=== PATIENT | female | born 1960 | race Caucasian/White ===

== ENCOUNTER → 2020-09-13 14:00 | Outpatient (CLI) | payer OTHER, SELFPAY ==
--- NOTE | ~2020-09-13 | MM_ITS ---
EXAMINATION: MM screening [facility] BI w ricki HISTORY: Screening mammogram TECHNIQUE: Craniocaudal and mediolateral oblique 3-D tomosynthesis images were obtained and synthetic 2-D images were generated. CAD analysis was submitted and interpreted. COMPARISON: 03/10/2019, 06/23/2017, 04/24/2016, 04/05/2016 BREAST PARENCHYMAL COMPOSITION: The breasts are heterogeneously dense, which may obscure small masses . FINDINGS: There is no evidence of suspicious mass, calcification, or architectural distortion to sugg est malignancy in either breast. There has been no suspicious interval change. IMPRESSION: 1. No mammographic evidence of malignancy. 2. Recommend routine screening mammography in one year. BI-RADS Category 1: Negative Reviewed, dictated and finalized at location A. NIC DISEASE MANAGER
== END ==
PROVIDERS: PCP Registered Nurse; Visit Provider Obstetrics & Gynecology
DX: Z12.31 Encounter for screening mammogram for malignant neoplasm of breast (principal)
CPT/HCPCS: 77063; 77067

== ENCOUNTER → 2021-09-28 16:21 | Outpatient (CLI) | payer OTHER, SELFPAY ==
--- NOTE | ~2021-09-28 | US_ITS ---
EXAMINATION: US thyroid DATE: 09/28/2021 16:36 INDICATION: Nontoxic single thyroid nodule TECHNIQUE: Multiple ultrasound images of the thyroid were obtained. COMPARISON: None. FINDINGS: The right thyroid lobe measures 3.2 x 1.1 x 1.0 cm. The left thyroid lobe measures 4.0 x 1.0 x 0.9 c m. 5 mm round hypoechoic nodule with smooth margins and without echogenic foci at the mid left thyro id (TI-RADS 4, moderately suspicious , FNA if >=1.5 cm, annual followup is >=1 cm). No other nodules identified. There is normal echotexture, echogenicity and vascular flow throughout the thyroid gland. IMPRESSION: 1. 5 mm TI-RADS 4 left thyroid nodule which remains below size criteria for recommendation of either biopsy or follow-up. Recommend clinical follow-up with repeat imaging if there are changes on physica l exam. Reviewed, dictated and finalized at location A. RETE STONE FABRICATING SUPERVISOR IMPRESSION: 1. 5 mm TI-RADS 4 left thyroid nodule which remains below size criteria for rec ommendation of either biopsy or follow-up. Recommend clinical follow-up with re peat imaging if there are changes on physical exam.
== END ==
PROVIDERS: PCP Registered Nurse; Visit Provider Registered Nurse
DX: E04.1 Nontoxic single thyroid nodule (principal)
CPT/HCPCS: 76536

== ENCOUNTER → 2021-10-13 10:02 | Outpatient (CLI) | payer OTHER, SELFPAY ==
--- NOTE | ~2021-10-13 | MM_ITS ---
EXAMINATION: MM screening [facility] BI w ricki HISTORY: Screening TECHNIQUE: Craniocaudal and mediolateral oblique 3-D tomosynthesis images were obtained and synthetic 2-D images were generated. CAD analysis was submitted and interpreted. COMPARISON: Comparison to multiple prior studies sequentially, with oldest reviewed study dated 03/2016. BREAST PARENCHYMAL COMPOSITION: The breasts are heterogenously dense, which may obscure small masses FINDINGS: There is no evidence of suspicious mass, calcification, or architectural distortion to sugg est malignancy in either breast. There has been no suspicious interval change. IMPRESSION: 1. No mammographic evidence of malignancy. 2. Recommend routine screening mammography in one year. BI-RADS Category 1: Negative Reviewed, dictated and finalized at location A. ER EXPERT
== END ==
PROVIDERS: PCP Registered Nurse; Visit Provider Registered Nurse
DX: Z12.31 Encounter for screening mammogram for malignant neoplasm of breast (principal)
CPT/HCPCS: 77063; 77067

== ENCOUNTER → 2023-09-13 14:03 | Outpatient (CLI) | payer OTHER, SELFPAY ==
--- NOTE | ~2023-09-13 | MM_ITS ---
EXAMINATION: MM screening [facility] BI w ricki HISTORY: Screening TECHNIQUE: Craniocaudal and mediolateral oblique 3-D tomosynthesis images were obtained and synthetic 2-D images were generated. CAD analysis was submitted and interpreted. COMPARISON: Comparison to multiple prior studies sequentially, with oldest reviewed study dated 06/23. BREAST PARENCHYMAL COMPOSITION: The breasts are heterogeneously dense, which may obscure small masses . FINDINGS: There is no evidence of suspicious mass, calcification, or architectural distortion to sugg est malignancy in either breast. There has been no suspicious interval change. IMPRESSION: 1. No mammographic evidence of malignancy. 2. Recommend routine screening mammography in one year. BI-RADS Category 1: Negative Reviewed, dictated and finalized at location A. P
== END ==
PROVIDERS: PCP Registered Nurse; Visit Provider Nurse Practitioner Obstetrics & Gynecology
DX: Z12.31 Encounter for screening mammogram for malignant neoplasm of breast (principal)
CPT/HCPCS: 77063; 77067

== ENCOUNTER 2024-10-07 15:04 | Outpatient (CLI) | payer OTHER, SELFPAY ==
--- NOTE | ~2024-10-07 | XR_ITS ---
HISTORY: G56.03 - Carpal tunnel syndrome, bilateral upper limbs COMPARISON: None TECHNIQUE: 3 views of the right hand were performed. FINDINGS: No acute fracture is identified. The joint spaces are preserved. The carpal arcs are intact. Mild radiocarpal joint space narrowing with sclerosis of the distal radius is present. Bone mineralization is unremarkable. No significant soft tissue swelling. No radiopaque foreign body is identified. IMPRESSION: No acute fracture or dislocation within the right hand, as detailed above. Reviewed, dictated and finalized at location A. ASSET MANAGER
--- NOTE | ~2024-10-07 | XR_ITS ---
XR hand LT min 3V Ordering provider: Alexus Reeves MD History: . G56.03 - Carpal tunnel syndrome, bilateral upper limbs . Comparison: None. FINDINGS: BONES: No acute fracture or dislocation. JOINT SPACES: Well maintained. SOFT TISSUES: Unremarkable. IMPRESSION: No acute osseous abnormality left hand. Reviewed, dictated and finalized at location A. ERNESS GUIDE
== END 2024-10-07 15:05 | disposition home or self-care (01) ==
PROVIDERS: PCP Registered Nurse; Visit Provider Plastic Surgery
DX: G56.03 Carpal tunnel syndrome, bilateral upper limbs (principal)
CPT/HCPCS: 73130

== ENCOUNTER 2024-11-28 00:26 | Day surgery (SDC) | payer OTHER, SELFPAY ==
[2024-11-25 08:31] VITALS: BMI 26.4
[2024-11-28 06:54] VITALS: BP 142/67; PULSE 48; RESP 18; TEMP 36.3; O2SAT 98
[2024-11-28] MEDS: LACTATED RINGERS 1,000 ML 150 ML IV CONT (07:04)
--- NOTE | 2024-11-28 07:22 | WPDANESEPPF ---
Anes - Initial Pre Proc Eval Procedure: Operation Date: 11/28/24 08:00 Proposed Procedures p Screening Colonoscopy - Aston Mendenhall MD Date/Time: 11/28/24 07:22 Surgeon: Aston Mendenhall MD Pre Op Diagnosis: Screening for malignant neoplasm of colon Patient Data Age: 64 Gender: F Height: 1.6 m Weight: 69.7 kg Last Vital Signs Temp 36.3 C L 11/28/24 06:54 Pulse 48 L 11/28/24 06:54 Resp 18 11/28/24 06:54 BP 142/67 H 11/28/24 06:54 Pulse Ox 98 11/28/24 06:54 O2 Del Method Room Air 11/28/24 06:54 Allergies Allergy/AdvReac Type Severity Reaction Status Date / Time No Known Allergies Allergy Verified 11/28/24 06:51 Home Medications ?Medication ?Instructions ?Recorded ?Confirmed ?Type celecoxib 200 mg capsule (Celebrex) 200 mg PO DAILY #30 caps 01/31/23 11/28/24 Rx hydrochlorothiazide 12.5 mg capsule 12.5 mg PO DAILY 01/31/23 11/28/24 History losartan 100 mg tablet 100 mg PO DAILY 01/31/23 11/28/24 History rosuvastatin 10 mg tablet 10 mg PO DAILY 01/31/23 11/28/24 History Patient hx anesthesia problems: none Family hx anesthesia problems: none Results Review: All pre-operative results and documents have been reviewed as part of the pre-operative evaluation. [facility] Past Medical History Medical History Degenerative arthritis of knee, bilateral Hypertension Surgical History Surgical History History of arthroscopy of left knee as a teenager Family History Family History Sibling Cancer Father Cancer Grandparent Cancer Social History Social History Smoking status: Never smoker Alcohol intake: never Substance use: never Substance use type: does not use Lack of Food: Never True Current Housing: I Have Housing Concerned About Future Housing: No Difficulty Paying Gas/Electric Bills: No Difficulty Paying for Meds: No Currently Unemployed: No Education: Associate Degree Difficulty w/ Childcare or Family Care: No Living arrangements: with family Occupation/Education: occupation 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 Informed Consent: The patient's anesthetic plan and its attendant risks and benefits were discussed with the patient/family/POA. Questions were solicited and answers provided to the satisfaction of the patient/family/POA.
--- NOTE | 2024-11-28 07:57 | PM.IMHP ---
H&P: HPI History of Present Illness Date/Time: 11/28/24 07:57 Chief Complaint: Screening colonoscopy Narrative: This is the patient's 2nd screening colonoscopy. the 1st 1 was about 15 years ago. There are no GI symptoms and there is no family history of colorectal cancer. Review of Systems Review of Systems: All systems reviewed & are unremarkable except as noted in HPI and below PMFSH Past Medical History Medical History Degenerative arthritis of knee, bilateral Hypertension Surgical History Surgical History History of arthroscopy of left knee as a teenager Family History Family History Sibling Cancer Father Cancer Grandparent Cancer Social History Social History Smoking status: Never smoker Alcohol intake: never Substance use: never Substance use type: does not use Lack of Food: Never True Current Housing: I Have Housing Concerned About Future Housing: No Difficulty Paying Gas/Electric Bills: No Difficulty Paying for Meds: No Currently Unemployed: No Education: Associate Degree Difficulty w/ Childcare or Family Care: No Living arrangements: with family Occupation/Education: occupation 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 Meds Home Medications and Allergies Home Medications ?Medication ?Instructions ?Recorded ?Confirmed ?Type celecoxib 200 mg capsule (Celebrex) 200 mg PO DAILY #30 caps 01/31/23 11/28/24 Rx hydrochlorothiazide 12.5 mg capsule 12.5 mg PO DAILY 01/31/23 11/28/24 History losartan 100 mg tablet 100 mg PO DAILY 01/31/23 11/28/24 History rosuvastatin 10 mg tablet 10 mg PO DAILY 01/31/23 11/28/24 History Allergies Allergy/AdvReac Type Severity Reaction Status Date / Time No Known Allergies Allergy Verified 11/28/24 06:51 Vital Signs Vital Signs - 24 hr 11/28/24 06:54 Temperature 97.4 F L Pulse Rate 48 L Respiratory Rate 18 Blood Pressure 142/67 H Pulse Oximetry 98 Oxygen Delivery Room Air Exam Const: General: cooperative and healthy appearing Resp: Effort & Inspection: normal respiratory effort and able to speak in complete sentences Auscultation: clear to auscultation bilaterally Cardio: Rate: regular rate Rhythm: regular rhythm GI: Inspection: normal to inspection GI Palp: No No hepatosplenomegaly present Auscultation: normal bowel sounds Rectal Exam: deferred Skin: General skin exam: normal color Psych: Appearance: grossly normal Mental Status: mental status grossly normal Assessment and Plan Assessment and plan (1) Encounter for screening colonoscopy: Code(s): Z12.11 - Encounter for screening for malignant neoplasm of colon Status: Acute Assessment and Plan: The patient is deemed a good candidate for the procedure. Consent signed. Will proceed.
[2024-11-28 08:17] VITALS: BP 108/64; PULSE 59; RESP 16; O2SAT 98
[2024-11-28 08:27] VITALS: BP 106/58; PULSE 54; RESP 18; O2SAT 98
[2024-11-28 08:37] VITALS: BP 120/70; PULSE 57; RESP 17; O2SAT 100
== END 2024-11-28 08:43 | disposition home or self-care (01) ==
PROVIDERS: PCP Registered Nurse; Visit Provider Internal Medicine Gastroenterology
PROC: 0DJD8ZZ Inspection of Lower Intestinal Tract, Via Natural or Artificial Opening Endoscopic (ICD-10-PCS; CPT 45378; principal; 2024-11-28 08:00)
DX: Z12.11 Encounter for screening for malignant neoplasm of colon (principal); K57.30 Diverticulosis of large intestine without perforation or abscess without bleeding; I10 Essential (primary) hypertension
CPT/HCPCS: 45378; J2704; J7120

== ENCOUNTER 2024-12-09 13:45 | Outpatient (CLI) | payer OTHER, SELFPAY ==
--- NOTE | 2024-12-09 14:15 | NEURO_ITS ---
Impression: # Complains of numbness of hands. Non-diabetic ? # Bilateral Carpal Tunnel Syndrome. ? # No ulnar neuropathy. ? # Normal needle/EMG exam. Nerve Conduction Studies Anti Sensory Summary Table ?Stim Site NR Peak (ms) P-T Amp (?V) Site1 Site2 Delta-P (ms) Dist (cm) Diego (m/s) Left Median Anti Sensory (2-3nd Digit) Wrist ? 3.8 22.6 Wrist 2-3nd Digit 3.8 14.0 37 Wrist ? 3.9 29.4 Wrist 2-3nd Digit 3.8 14.0 37 Right Median Anti Sensory (2-3nd Digit) Wrist ? 3.8 26.9 Wrist 2-3nd Digit 3.8 14.0 37 Wrist ? 3.8 22.7 Wrist 2-3nd Digit 3.8 14.0 37 Left Radial Anti Sensory (Base 1st Digit) Wrist ? 1.8 28.5 Wrist Base 1st Digit 1.8 0.0 Right Radial Anti Sensory (Base 1st Digit) Wrist ? 2.2 19.0 Wrist Base 1st Digit 2.2 0.0 Left Ulnar Anti Sensory (5th Digit) Wrist ? 2.1 56.4 Wrist 5th Digit 2.1 14.0 67 Right Ulnar Anti Sensory (5th Digit) Wrist ? 2.1 37.9 Wrist 5th Digit 2.1 14.0 67 Motor Summary Table ?Stim Site NR Onset (ms) O-P Amp (mV) Site1 Site2 Delta-0 (ms) Dist (cm) Diego (m/s) Left Median Motor (Abd Poll Brev) Wrist ? 4.0 6.5 Elbow Wrist 4.1 26.0 63 Elbow ? 8.1 8.1 Right Median Motor (Abd Poll Brev) Wrist ? 4.1 2.9 Elbow Wrist 4.2 26.0 62 Elbow ? 8.3 7.1 Left Ulnar Motor (Abd Dig Minimi) Wrist ? 2.2 9.1 A Elbow Wrist 4.7 29.0 62 A Elbow ? 6.9 7.1 B Elbow Wrist 3.3 20.0 61 B Elbow ? 5.5 4.9 Right Ulnar Motor (Abd Dig Minimi) Wrist ? 2.5 6.9 A Elbow Wrist 4.7 29.0 62 A Elbow ? 7.2 5.7 B Elbow Wrist 3.0 19.0 63 B Elbow ? 5.5 6.1 F Wave Studies ?NR F-Lat (ms) L-R F-Lat (ms) Left Median (Mrkrs) (Abd Poll Brev) ? 27.00 0.38 Right Median (Mrkrs) (Abd Poll Brev) ? 27.37 0.38 Left Ulnar (Mrkrs) (Abd Dig Min) ? 26.25 0.02 Right Ulnar (Mrkrs) (Abd Dig Min) ? 26.27 0.02 EMG ?Side Muscle Nerve Root Ins Act Fibs Amp Dur Recrt Comment Right 1stDorInt Ulnar C8-T1 Nml Nml Nml Nml Nml Right Ext Indicis Radial (Post Int) C7-8 Nml Nml Nml Nml Nml Right Ext Digitorum Radial (Post Int) C7-8 Nml Nml Nml Nml Nml Right BrachioRad Radial C5-6 Nml Nml Nml Nml Nml Right PronatorTeres Median C6-7 Nml Nml Nml Nml Nml Right Abd Poll Brev Median C8-T1 Nml Nml Nml Nml Nml Right ABD Dig Min Ulnar C8-T1 Nml Nml Nml Nml Nml Left 1stDorInt Ulnar C8-T1 Nml Nml Nml Nml Nml Left Ext Indicis Radial (Post Int) C7-8 Nml Nml Nml Nml Nml Left Ext Digitorum Radial (Post Int) C7-8 Nml Nml Nml Nml Nml Left BrachioRad Radial C5-6 Nml Nml Nml Nml Nml Left PronatorTeres Median C6-7 Nml Nml Nml Nml Nml Left Abd Poll Brev Median C8-T1 Nml Nml Nml Nml Nml Left ABD Dig Min Ulnar C8-T1 Nml Nml Nml Nml Nml MTDD
--- OUTSIDE RECORDS SUMMARY | 2024-12-09 15:25 | XMS_ITS | Encounter Summary ---
Author Organization [facility] Address [facility] [place] [address] Care Team Providers Care Commercial Real Estate Broker Name Role Phone Katie Hayden Primary Care Provider [phone] Encounter Details Date Type Department Care Team (Late st Contact Info) Description 10/06/2021 Sovahart Message Enc [facility] Family & Internal Medicine [facility] [address] [place] [address] Katie Hayden APNP [address] [place] [address] Hydrochlorothiazide Social History Tobacco Use Types Packs/Day Years Used Date Smoking Tobacco: Never Smokeless Tobacco: Never Alcohol Use Standard Drinks/Week Comments No 0 (1 standard drink = 0.6 oz pur e alcohol) AUDIT-C Answer Date Recorded Frequency of Alcohol Consumption Never 02/04/2019 Average Number of Drinks Not on file 019 Frequency of Binge Drinking Not on file 03/2019 PHQ-2 Answer Date Recorded PHQ-2 Score 1 02/04/2019 Comments No Sex and Gender Information Value Date Recorded Sex Assigned at Not on file Legal Sex Female 2:39 PM CDT Gender Identity Not on file Sexual Orientation Not on file COVID-19 Exposure Response Date Recorded In the last month, have you been in contact with someone who was confirmed or suspected to have Coronavirus / COVID-19? No / Unsure 09/19/2021 2:32 PM CREAMERY WORKER documented as of this encounter Plan of Treatment Not on file documented as of this encounter Visit Diagnoses Not on filedocumented in this encounter Care Teams Commercial Real Estate Broker Relationship Specialty Start Date End Date Katie Hayden APNP [address] [place], [place] [phone] PCP - General NURSE PRACTITIONER 02/04/19 documented as of this encounter
--- OUTSIDE RECORDS SUMMARY | 2024-12-09 15:25 | XMS_ITS | Encounter Summary ---
Author Organization [facility] Address [address] [place] [id number] Care Team Providers Care Forming Machine Upkeep Mechanic Helper Name Role Phone Katie Hayden Primary Care Provider [phone] Encounter Details Date Type Department Care Team (Late st Contact Info) Description 01/12/2022 Online [place] Message Enc [facility] Medical Group Family & Internal Medicine [facility] [address] [place] [address] Katie Hayden APNP [address] [place] [address] [place] Social History Tobacco Use Types Packs/Day Years [...] on file Sexual Orientation Not on file documented as of this encounter Plan of Treatment Not on file documented as of this encounter Visit Diagnoses Not on filedocumented in this encounter Care Teams Forming Machine Upkeep Mechanic Helper Relationship Specialty Start Date End Date Katie Hayden APNP [facility] [place], [place] [id number] PCP - General NURSE PRACTITIONER 02/04/19 documented as of this encounter
--- OUTSIDE RECORDS SUMMARY | 2024-12-09 15:25 | XMS_ITS | Encounter Summary ---
Author Organization [facility] Address [address] [place] [address] Care Team Providers Care Foundry Supervisor Name Role Phone Jackelyn Katie WOO Primary Care Provider [phone]- [phone] Reason for Visit * Reason Comments Colonoscopy Report (SCAN) Encounter Details Date Type Department Care Team ([facility] Contact Info) Description 11/28/2024 Scan [facility] Scanned, Doc Med Group Colonoscopy Report (SCAN) Social History Tobacco Use Types Packs/Day Years Used Date Smoking Tobacco: Never Smokeless Tobacco: Never Alcohol Use Standard Drinks/Week Comments No 0 (1 standard drink = 0.6 oz pur e alcohol) AUDIT-C Answer Date Recorded Frequency of Alcohol Consumption Never 02/04/2019 Average Number of Drinks Not on file 019 Frequency of Binge Drinking Not on file 03/2019 PHQ-2 Answer Date Recorded Patient Health Questionnaire-2 Score 0 08/08/2024 Comments No Sex and Gender Information Value Date Recorded Sex Assigned at Not on file Legal Sex Female 2:39 PM CDT Gender Identity Not on file Sexual Orientation Not on file documented as of this encounter Plan of Treatment Not on file documented as of this encounter Procedures Procedure Name Priority Date/Time Associated Diagnosis Comments COLONOSCOPY GENERIC (SCAN ORDER) 11/28/2024 documented in this encounter Results * COLONOSCOPY GENERIC (SCAN ORDER) (11/28/2024) 11/28/2024 us Doc [facility] Scanned SCANNING Final Resu lt documented in this encounter Visit Diagnoses Not on filedocumented in this encounter Additional Health Concerns Assessment Noted Time PHQ-9 Depression Total Score: 1 08/16/20 23 3:59 PM LIGHTING DIRECTOR documented as of this encounter Care Teams Foundry Supervisor Relationship Specialty Start Date End Date Katie Hayden APNP [address] [place] [id number] PCP - General NURSE PRACTITIONER 02/04/19 documented as of this encounter
--- OUTSIDE RECORDS SUMMARY | 2024-12-09 15:25 | XMS_ITS | Clinical Summary ---
Author Organization [facility] Address [facility] [place] [address] Care Team Providers Care Internet Marketing Coordinator Name Role Phone Katie Hayden Primary Care Provider Allergies No known active allergies Medications acetaminophen 500 MG tablet Take 1 tablet (500 mg total) by mouth. Active Lysine HCl 1000 MG Tab Take 1 tablet by mouth daily. Active Zinc 50 MG Tab Take 1 tablet by mouth daily. Active Multiple Vitamin (MULTIVITAMIN) capsule Take 1 capsule by mouth daily. Active vitamin D3, cholecalciferol, 25 MCG (1000 UT) capsule Take 1 capsule (1,000 Units total) by mouth daily. Active rosuvastatin (CRESTOR) 10 MG tabletIndications:M ixed hyperlipidemia Take 1 tablet (10 mg total) by mouth nightly at bedtime. 90 tablet 3 4 Active losartan (COZAAR) 100 MG tabletIndications:E ssential hypertension Take 1 tablet (100 mg total) by mouth daily. 90 tablet 3 4 Active hydroCHLOROthiazide (MICROZIDE) 12.5 MG tabletIndications:E ssential hypertension Take 1 tablet (12.5 mg total) by mouth every morning. 90 tablet 3 4 Active celecoxib (CELEBREX) 200 MG capsuleIndications: Chronic knee pain, unspecified laterality Take 1 capsule (200 mg total) by mouth daily. 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 09/07/2021 Basal cell carcinoma (BCC) of face 11/08/2020 Overview (09/07/2021): Added automatically from request for surgery [id number] Precordial pain 09/03/2020 Overweight (BMI 25.0-29.9) 09/03/2020 Abnormal EKG 09/03/2020 Hypercholesterolemia 09/03/2020 Incomplete RBBB 09/03/2020 Essential hypertension 07/16/2020 Basal cell carcinoma (BCC) of lower eyelid 06/03 Overview (07/16/2020): Added automatically from request for surgery [id number] Added automatically from request for surgery [id number] Malignant melanoma of overlapping sites ([facility]) 02/04/2019 Basal cell carcinoma (BCC) of overlapping sites of skin 02/04/2019 Resolved Problems Problem Noted Date Diagnosed Date Resolved Date Encounter for screening for malignant neoplasm of rectum 03/24/2019 09/12/2021 Encounters Date Type Department Care Team Description 11/28/2024 Scan [facility] Scanned, [facility] Colonoscopy Report (SCAN) 10/07/2024 Scan [facility] Scanned, [facility] Image (SCAN) from Last 3 Months Immunizations Name Administration Dates Next Due Flublok (RIV3, Trivalent, 0.5mL) 07/11/2024 Fluzone 6 Months+ Quad (0.5 mL Prefilled Syringe) 05/26/2020 Influenza Adult (Generic) 07/23/2023,03/2022,07/06/2021, 020 MODERNA COVID-19 (12+) MRNA, LNP-S, PF, 100 MCG/ 0.5 ML DOSE 07/23/2022 MODERNA COVID-19 ([employer]EVE), MRNA, LNP-S, PF, 50 MCG/ 0.25 ML DOSE 08/20/2021 Tdap (Generic) 09/20/2017 Family History Medical History Relation Comments Cancer Brother throat Heart Disease Father 50 Ovarian Cancer Maternal Grandmother Kidney Disease Mother Relation Status Comments Brother Father Alive Maternal Grandmother Mother Alive Social History Tobacco Use Types Packs/Day Years Used Date Smoking Tobacco: Never Smokeless Tobacco: Never Tobacco Cessation:Counseling Given: No Alcohol Use Standard Drinks/Week Comments No 0 [...] on file Sexual Orientation Not on file Last Filed Vital Signs Vital Sign Reading Time Taken Comments Blood Pressure 110/64 08/08/2024 9:50 AM [facility] Pulse 58 08/08/2024 9:50 AM [facility] Temperature 36.5 C (97.7 F) 08/08/2024 9:50 AM [facility] Respiratory Rate 16 08/08/2024 9:50 AM [facility] Oxygen Saturation 97% 08/08/2024 9:50 AM [facility] Inhaled Oxygen Concentration - - Weight 69.4 kg (153 lb) 08/08/2024 9:50 AM [facility] Height 160 cm (5' 3 ) 08/08/2024 9:50 AM [facility] Body Mass Index 27.1 08/08/2024 9:50 AM [facility] Plan of Treatment Health Maintenance Due Date Last Done Comments Cervical Cancer Screening Pap with HPV Testing (Age 30 to 64) Every 5 Years 1992 PHQ-2 (Physician [place]) 10/01/2024 08/08/2024 Annual Physical 08/08/2025 08/08/2024, 09/07/2021 Zoster Vaccines (1 of 2) 08/08/2025 Pos tponed from 2012 (Patient Refused) Mammogram Screening 09/13/2025 09/13/2023, 10/13/2021, 09/13/2020, Additional history exists Cervical Cancer Screening Pap Smear (Age 30 to 64) Every 3 Years 07/11/2026 07/11/2023 Cervical Cancer Screening with HPV 07/11/2026 DTaP, Tdap and Td Vaccines (2 - Td or Tdap) 09/20/2027 09/20/2017 Colorectal Cancer Screening Colonoscopy (10 Years) 11/28/2034 11/28/2024 RSV Immunization or 60+ Years (1 - 1-dose 75+ series) 2037 COVID-19 Vaccine Completed 07/11/2024, , 07/23/2022, Additional history exists Influenza Adult Completed 07/11/2024, 07/02, 07/07/2022, Additional history exists Hepatitis C Completed 08/08/2024 Meningococcal B Vaccine Aged Out No l onger eligible based on patient's age to complete this topic Meningococcal Vaccine Aged Out No kate phani eligible based on patient's age to complete this topic Pneumococcal Vaccine: Pediatrics (0 to 5 Years) and At-Risk Patients (6 to 64 Years) Aged Out No longer eligible based on patient's age to complete this topic RSV Immunizations Under 20 Months Aged Out No longer eligible based on patient's age to complete this topic Procedures Procedure Name Priority Date/Time Associated Diagnosis Comments COLONOSCOPY GENERIC (SCAN ORDER) 11/28/2024 IMAGE GENERIC 10/07/2024 IMAGE GENERIC 10/07/2024 HEPATITIS C ANTIBODY Routine 08/08/2024 11:00 AM [facility] Need for hepatitis C screening test MAMMOGRAM GENERIC (SCAN ORDER) 09/13/2023 from Last 3 Months or Most Recently Relevant to Health Maintenance Results * COLONOSCOPY GENERIC (SCAN ORDER) (11/28/2024) 11/28/2024 [employer] Scanned SCANNING Final Resu lt * IMAGE GENERIC (10/07/2024) Only the most recent of2 resultswithin the time period is included. Anatomical Region Laterality Modality Other 10/07/2024 [employer] Scanned SCANNING Final Resu lt * HEPATITIS C AB ([facility] ONLY) (08/08/2024 11:00 AM [facility]) HEPATITIS C AB NON-REACTI VE NON-REACT JAKE 08/08/2024 9:49 PM [facility] Comment: ANTIBODIES TO HCV NOT DETECTED. DOES NOT EXCLUDE THE POSSIBILITY OF EXPOSURE TO HCV. 08/08/2024 11:0 0 AM [facility] Final Resul t [facility] [address] [place] [address], [id number] * MAMMOGRAM GENERIC (09/13/2023) Anatomical Region Laterality Modality Other 09/13/2023 [facility] Scanned SCANNING Final Resu lt from Last 3 Months or Most Recently Relevant to Health Maintenance Insurance [employer] Care Teams Internet Marketing Coordinator Relationship Specialty Start Date End Date Katie Hayden APNP [facility] [place] [address] PCP - General NURSE PRACTITIONER 02/04/19
--- OUTSIDE RECORDS SUMMARY | 2024-12-09 15:25 | XMS_ITS | Encounter Summary ---
Author Organization [facility] Address [address] [place] [id number] Care Team Providers Care Queen'S Counsel Name Role Phone Katie Hayden Primary Care Provider [phone] Encounter Details Date Type Department Care Team (Late st Contact Info) Description 02/18/2024 Press About Us Message Enc [place] [facility] [address] [facility] [address] [place] [address] Petey Bauman MD [address] [facility] [address] [place] [address] Need to schedule a follow up appointment! 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
--- OUTSIDE RECORDS SUMMARY | 2024-12-09 15:25 | XMS_ITS | Clinical Summary ---
Author Organization [facility] Address [address] [place] [address] Care Team Providers Care Assistant Chief Train Dispatcher Name Role Phone Unavailable Primary Care Provider Unavailabl e Source Comments [facility],non-owned Affiliates and Associated Physician Practices is amultiple site organization consisting of ambulatory clinics and hospital sitesin [place], [place], [place] and [place]. This disclosure is being madepursuant to the Care Everywhere program and may not contain all information available regarding this patient. Last updated 18.[facility] Allergies No known active allergies Immunizations Name Administration Dates Next Due TDAP (7yrs+) 09/20/2017 Social History Tobacco Use Types Packs/Day Years Used Date Smoking Tobacco: Never Assessed Sex and Gender Information Value Date Recorded Sex Assigned at Not on file Gender Identity Not on file Sexual Orientation Not on file Plan of Treatment Health Maintenance Due Date Last Done Comments COLOGUARD (AGES 45-75) - COL ON CA SCREENING 1962 COLON MONITORING 1962 COLONOSCOPY - COLON CA SCREENING 1962 CT COLONOGRAPHY - COLON CA SCREENING 1962 Colorectal Cancer Screening 1962 FIT - COLON CA SCREENING 1962 FLEX SIG - COLON CA SCREENING 1962 LIPID TESTING 1962 MAMMOGRAM 1962 PAP SMEAR 1962 HIV SCREENING 1977 HEPATITIS C SCREENING 07/29/1980 PNEUMOCOCCAL VACCINE 50+ (1 of 1 - PCV) 2012 ZOSTER VACCINE (1 of 2) 2012 COVID-19 VACCINE ( - 2023-2 5 season) 2024 INFLUENZA VACCINE (#1) 2024 DEPRESSION SCREENING 10/01/2024 DTAP/TDAP/TD VACCINES (2 - T d or Tdap) 09/20/2027 09/20/2017 Respiratory Syncytial Virus (RSV) Vaccine Pt: or over 60 yrs (1 - 1-dose 75+ series) 2037 HEPATITIS B VACCINE Aged Out No longe r eligible based on patient's age to complete this topic HIB VACCINE Aged Out No longer eligi ble based on patient's age to complete this topic HPV VACCINE Aged Out No longer eligi ble based on patient's age to complete this topic MENINGOCOCCAL (Group B) VACCINE Aged Out No longer eligible based on patient's age to complete this topic MENINGOCOCCAL VACCINE Aged Out No kate phani eligible based on patient's age to complete this topic PNEUMOCOCCAL VACCINE Aged Out No long er eligible based on patient's age to complete this topic
--- OUTSIDE RECORDS SUMMARY | 2024-12-09 15:25 | XMS_ITS | Referral Summary ---
Author Organization [facility] Address [address] [place] [address] Care Team Providers Care Blocker Hand Name Role Phone Unavailable Primary Care Provider Unavailabl e Source Comments [facility],non-owned Affiliates and Associated Physician Practices is amultiple site organization consisting of ambulatory clinics and hospital sitesin [place], [place], [place] and [place]. This disclosure is being madepursuant to the Care Everywhere program and may not contain all information available regarding this patient. Last updated 18.[facility] [place] Allergies No known active allergies Immunizations Name Administration Dates Next Due TDAP (7yrs+) 09/20/2017 Social History Tobacco Use Types Packs/Day Years Used Date Smoking Tobacco: Never Assessed Sex and Gender Information Value Date Recorded Sex Assigned at Not on file Gender Identity Not on file Sexual Orientation Not on file Plan of Treatment Not on file
--- OUTSIDE RECORDS SUMMARY | 2024-12-09 15:25 | XMS_ITS | Data Portability ---
Author Organization [facility] [place] Address [address] [place] [address] [place] [address] Care Team Providers Care Director Of Orthopedics Name Role Phone FIDEL ENRIQUEZ Primary Care Provider Assessment Encounter Date Assessment Date Assessment LastModified by Organization Details LastModified Time 08/20/2020 08/20/2020 healthy female exam/menopause pap done, discussed guidelines mammogram ordered and encouraged, she has scheduled colonoscopy due in 2027 dexa baseline 60-65 Encouraged weight bearing exercise and 1500mg daily of Calcium with Vitamin D FU 1 year or prn [email or web address] Not available 08/20/2020 10:08:13 07/11/2023 07/11/2023 Annual gynecological exam performed. Patient will come back in a year unless there are new symptoms. Not available 07/11/2023 14:53:46 Plan of Treatment Reminders Order Date Submit Date Provider Last Modified By Organization Details Last Modified Time Details Appointments None recorded. Lab None recorded. Referral None recorded. Procedures None recorded. Surgeries None recorded. Imaging MAMMO, screening, digital, bilateral 2022 023 [facility], [address], [place], [address], 3 10:29:36 Medication Orders None recorded. Patient TargetsNo targets recorded. Patient InstructionsNo instructions recorded. Reason for Referral None Reported. Results Created Date Observation Date Name Description Value Unit Range Abnormal Flag Note LastModifiedBy Organization Detail LastModifiedTime 08/20/2008/23/2020 pap, LB Pap test thin prep Negati ve for Intrae pithel ial Lesion or Malign jelena normal ACCES JONATHAN #: [id number] Sourc e: Cervi doretha/E ndoce rvica l LMP: 07-20 Date Taken : 08/20 Speci men Type: ThinP rep Vial Date Repor julianna: 08/23 Clini doretha Data: Cytot ech: Eliane Corcoran , CT (ASCP ) Date Repor julianna: 08/23 Speci men Adequ acy: Satis facto ry for evalu ation Gener al Categ oriza tion: NEGAT JAKE FOR INTRA EPITH ELIAL LESIO N OR MALIG TRACIE Inter preta tion/ Resul t: Atrop hy This speci men has been mark zed by the ThinP rep Imagi ng Syste m, an inter activ e compu ter syste m which meliza ts the lab in the scree quyen of ThinP rep Pap Test slide s. Follo wing imagi ng, the slide was revie wed by a Cytot echno logis t and/o r Patho logis t. D N A A S S A Y S R E P O R T TEST NAME RESUL TS ----- ---- ----- -- HPV High Risk Scree n (TMA) ThinP rep Vial The human papil lomav irus (HPV) High Risk Scree n is an FDA-a pprov ed in-vi tro ampli fied nucle ic acid test for the quali tativ e detec tion of E6/E7 viral mRNA. Resul ts shoul d be corre lated with patie nt prese ntati on, histo ry, cervi doretha cytol ogy and other clini doretha and labor atory findi ngs. See https ://Agendize/s ites/ defau lt/fi les/2 018-0 3/AW- 22010 _002_ 01.pd f for barry fuentes infor raul n. Test perfo rmed by [facility], d/b/a [facility], [address], [facility] [address] , Noemi Hodge ra, DO, Labor atory Direc tor. HPV High Risk *HPV NOT DETEC JULIANNA (TYPE S 16, 18, 31, 33, 35, 39, 45, 51, 52, 56, 58, 59, 66, 68) *HPV: The human papil lomav irus (HPV) High Risk Amada ramos is an FDA-a pprov ed in-vi tro ampli fied nucle ic acid test for the quali tativ e detec tion of E6/E7 viral mRNA. Resul shoul d be corre lated with patie nt prese ntati on, histo ry, cervi doretha cytol ogy and other clini doretha and labor atory findi ngs. See https ://Agendize/s ites/ defau lt/fi les/2 018-0 3/AW- 56796 _002_ 01.pd f for barry gina infor raul ramos. Test perfo rmed by [facility] [employer], d/b/a [facility], [address], [place] [address] , Noemi Hodge ra, DO, Labor atory Direc tor. End of t Techn ical servi lillian provi ded by [facility], d/b/a [facility] [employer], [address] [place] [address] Derrek Reeves MD, Labor atory Direc tor. Case revie wed and diagn osis rende red at [facility], d/b/a [facility] [employer] [facility], [address] [place] [address] Derrek Reeves MD, Labor atory Direc tor. CONFI DENTI AL Not Available [facility]) [address], [place], [address], 08/23/2020 12:47:07 08/20/20 20 08/22/2020 HPV DNA, high- risk HPV high risk NOT DETECT ED normal Not Available [facility] ([facility]) [address], [place], [address], 08/23/2020 12:47:08 07/11/20 23 07/11/2023 IMAGE GUIDE D PAP AND HPV REGAR DLESS image guided Pap, HPV regardless of Pap result SEE RESULT S BELOW CASE REPOR T: Cytol ogy Gynec ologi doretha Repor t Case: [id number] Autho randall sam Provi eben: Wood Simon sapp Colle cted: 07/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 Atrop hic cell yaa krause. Elect rashida billy nathanael d by Tasneem Varela ret, CT on 07/13 at 2:57 PM ----- ----- ----- ----- ----- ----- ----- ----- ----- ----- ----- ----- ----- ----- ----- ----- ----- ---- HPV RESUL TS: HPV mRNA E6/E7 : No HPV mRNA Detec julianna NOTE: This high risk HPV mRNA assay detec ts fourt een high- risk HPV types (16, 18, 31, 33, 35, 39, 45, 51, 52, 56, 58, 59, 66, 68) witho ut diffe renti ation . COMME NT: This speci men was revie wed by a Cytot echno logis t and/o r Patho logis t (as indic ated in this repor t) after evalu ation using the Thinp rep Imagi ng Syste m. CLINI DORETHA INFOR MATIO N: Menst rual Statu s: LMP (if appli cable ): Clini doretha Histo ry/Pr eviou s Pap: Type of Neopl hugh (if appli cable ): Signi fican t Clini doretha Findi ngs: Other Histo ry: Hormo arya (if appli cable ): PAP EDUCA KENRICK L NOTE: The Pap Test is a scree quyen test with an inher ent false negat jake rate. Liqui d-bas ed sampl ing may decre ase, but will not elimi keshia, false negat jake resul ts. A negat jake resul t does not precl ude the prese nce and/o r devel opmen t of disea se, since the prese nce of abnor mal cells in the sampl e depen ds on the locat ion of the lesio n and sampl ing techn ique. Nasrin nued regul ar scree quyen is the best metho d of cance r preve ntion . If repor julianna cytol ogic findi ng do not corre late with physi doretha and/o r histo rical findi ngs, furth er inves tigat ion is recom zeenat d, as clini lore avilez nted. Not Available [facility] (Lab) [address], [place], [address], 07/13/2023 16:01:27 09/13/20 23 09/13/2023 MAMMO , scree quyen, digit al, bilat eral No observ ation record ed. [facility] [address], [place], [address], 09/13/2023 19:19:56 Result Notes None recorded. 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) w/o abn findings;R ecorded Elsewhere: No Locatio n: [facility] rce: EHR Chroni c: N Practice ID: 0001 Billa ble Time: 08:45:00 AM Not Available [facility] 0 21:54:42 Screening for malignant neoplasm of cervix Active 2015 Encounter for screening for malignant neoplasm of cervix;Rec orded Elsewhere: No Locatio n: [facility] rce: EHR Chroni c: N Practice ID: 0001 Billa ble Time: 01:00:00 PM Not Available [facility] 0 21:54:[address] Concept Active 2016 Encntr for general adult medical exam w/o abnormal findings;R ecorded Elsewhere: No Locatio n: [facility] rce: EHR Chroni c: N Practice ID: 0001 Billa ble Time: 12:00:00 PM Not Available [facility] 0 21:54:43 Hemorrhag e of rectum and anus [id number] Active 2015 Hemorrhage of anus and rectum;Rec orded Elsewhere: No Locatio n: [facility] rce: EHR Chroni c: N Practice ID: 0001 Billa ble Time: 01:00:00 PM Not Available [facility] 0 21:54:43 Problem Notes None recorded. Procedures Surgical History Date Name Laterality Status Provider Name and Address Organization Details Recorded Time 0 Date of Last Pap Smear completed Adriana Carranza [facility] 07/11/2023 15:11:06 0 Date of Last Mammogram completed Adriana Carranza [facility] 07/11/2023 15:10:14 9 completed Jesusita Rubin MD [address], [place], [address], [facility] 08/20/2020 10:01:16 8 completed Jesusita Rubin MD [address], [place], [address], [place] [facility] 08/20/2020 10:01:21 excision of basal cell carcinoma completed Adriana Carranza [facility] 07/11/2023 15:08:20 Imaging Results Imaging Date Name Status LastModified by Organiz ation Details LastModified Time 09/13/2023 MAMMO, screening, digital, bilateral completed [facility] [address], [place], [address], 09/13/2023 19:19:56 Procedure Notes None recorded. Medical Equipment None Reported. Allergies No known drug allergies Medications Name Sig Start Date Stop Date Status Note LastModified by Organization Details LastModified Time celecoxib 200 mg capsule TAKE 1 CAPSULE BY MOUTH DAILY active Not Available Not Available No t Available fluorouraci l 5 % topical cream 07/11 completed Not Available Not Available Not Available imiquimod 5 % topical cream packet 07/11 completed Not Available Not Available Not Available methylpredn isolone 4 mg tablets in a dose pack FOLLOW PACKAGE DIRECTION S 07/11 completed Not Available Not Available Not Available losartan 100 mg tablet active Not Available Not Available Not Available calcipotrie ne 0.005 % topical ointment APPLY TOPICALLY TO THE AFFECTED AREA TWICE DAILY 07/11 completed Not Available Not Available Not Available rosuvastati n 10 mg tablet active Not Available Not Available Not Available lisinopril 07/11 completed Not Available Not Available Not Available hydrochloro thiazide 12.5 mg tablet active Not Available Not Available Not Available Vitals Date Recorded Body height Body mass index (BMI) Body weight Systolic blood pressure Diastolic blood pressure Provider Name and Address Organization Details Last Updated DateTime 07/11/2023 160.02 cm 28.2 kg/m2 67653.19 g 142 mm[Hg] 77 mm[Hg] Adriana Carranza [facility] 15:10:10 Date Recorded Body height Body mass index (BMI) Body weight Systolic blood pressure Diastolic blood pressure Provider Name and Address Organization Details Last Updated DateTime 08/20/2020 165.1 cm 27.3 kg/m2 57322.15 g 157 mm[Hg] 79 mm[Hg] Christina Mckee [facility] 0 09:43:16 Social History Question Answer Notes LastModified by Organizat ion Details LastModified Time Tobacco Smoking Status Never Smoker Adriana Carranza jessica, [facility] 07/11/2023 15:10:18 What Is Your Level Of Alcohol Consumption? None Information not available 07/11/2023 How Many Years Have You Consumed Alcohol? 0 Information not available 07/11/2023 Are You Blind Or Do You Have Difficulty Seeing? Yes Information n ot available 07/11/2023 What Is Your Level Of Caffeine Consumption? Moderate Information not available 07/11/2023 How Much Tobacco Do You Chew? None Information not available 07/11/2023 In The 14 Days Before Symptom Onset, Have You Had Close Contact With A Laboratory-confirm ed COVID-19 While That Case Was Ill? No Information n ot available 07/11/2023 In The 14 Days Before Symptom Onset, Have You Had Close Contact With A Person Who Is Under Investigation For COVID-19 While That Person Was Ill? No Information not available 07/11/2023 Have You Been To An Area Known To Be High Risk For COVID-19? No Information not available 07/11/2023 Are You Deaf Or Do You Have Serious Difficulty Hearing? No Information not available 07/11/2023 What Type Of Diet Are You Following? REGULAR Information n ot available 07/11/2023 What Is The Highest Grade Or Level Of School You Have Completed Or The Highest Degree You Have Received? 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 No Information not available 07/11/2023 Do You Use Protection During Sex? No Information not available 07/11/2023 Do You Use Your Seat Belt Or Car Seat Routinely? Yes Information not available 07/11/2023 Do You Have Smoke And Carbon Monoxide Detectors In Your Home? Yes Information not available 07/11/2023 How Much Tobacco Do You Smoke? No Information not available 07/11/2023 Do You Feel Stressed (tense, Restless, Nervous, Or Anxious, Or Unable To Sleep At Night)? [id number] Information not available 07/11/2023 Do You Use Any Illicit Or Recreational Drugs? No Information not available 07/11/2023 Do You Use Sunscreen Routinely? Yes Information not available 07/11/2023 How Many Years Have You Smoked Tobacco? 0 Information not available 07/11/2023 Have You Used IV Drugs? No Information not available 07/11/2023 Sex: Unknown Functional Status Question Answer Note LastModified by Organization D etails LastModified Time Are you able to walk? YESWOREST Information not available 07/11/2023 What is your exercise level? Heavy Information not available 07/11/2023 Mental Status None recorded. Family History Relationship Description Onset Age of this Age Resolved Age Notes LastModified by Organization Details LastModified Time Father Hypertensive disorder [email or web address] Not available 2019 17:19:16 Father Malignant neoplasm of urinary bladder [email or web address] Not available 2019 10:02:05 Brother Carcinoma in situ of larynx [email or web address] Not available 2019 17:20:14 Maternal Grandmother Carcinoma in situ of colon [email or web address] Not available 2019 17:20:27 Notes:Brother: Cancer, throa t Father: Hypertension Maternal grandmother: Cancer, colon Medical History Condition Response Allergies (Food, seasonal, environmental ) N Other N Breast Cancer N Drug/Latex Allergies/Reactions N Blood Transfusion N Dermatologic Disorders N Lung Disease N Defects or Inherited Disease N Breast Problem N Gestational Diabetes N Hematologic disorders N Anesthesia Complications N History of STI N Deep Vein Thrombosis N Polycystic ovary syndrome N Anxiety Disorder N Autoimmune disease N Arthritis N Infertility N Polyps N Acid Reflux (GERD) N History of abnormal pap N Cancer N Stroke N Varicosities N Neurologic/Epilepsy N Endometriosis N High Cholesterol Y Headaches N Fibromyalgia N Kidney Disease N Heart Problems N Kidney or Bladder Problems N Thyroid Problems N GI Problems N Eating Disorder N Anemia N Art (IVF or FET) N Psychiatric Illness N Ovarian Cancer N Diabetes N Pulmonary (TB, Asthma) N Hepatitis/Liver Disease N Eczema N Urinary Tract Infection N Abuse/Domestic Violence N Asthma N Trauma/Violence N Depression/ depression N Heart Disease N Pre-Eclampsia N Hypertension Y Osteoporosis N Thrombophilias N Gynecological History Statement/Question Response Abnormal Pap N Date of Last Mammogram 02/03/2020 N STIs/STDs N HPV Vaccine N Duration of Flow (days) 5 10/01/2018 Current Control Method None If Post Menopausal, Age at Menopause 53 Date of Last Colonoscopy Frequency of Cycle (Q days) 5 Sexually Active? N Menses Monthly N Date of DEXA bone scan Age of first menstrual cycle 14 Date of Last Pap Smear 09/01/2020 Sexual Problems? N Desired Control Method None LMP Unknown 10/01/2017 N Obstetrics History GPAL:G 0 P 0 0 0 0 Past Encounters Encounter ID Performer Location Encounter Start Date Encounter Closed Date Diagnosis/Indication Diagnosis SNOMED-CT Code Diagnosis ICD10 Code Diagnosis Note [id number] Jesusita Rubin MD [facility] [address] [address] 08/20/2020 09:32:00 08/20/2020 10:38:46 Gynecologic examination 20803751 Z01.419 [id number] [facility] [address] [address] 07/11/2023 14:50:13 07/11/2023 15:28:21 Gynecologic examination 80597786 Z01.419 Take Calcium with Vitamin D 12-1500mg daily. Do monthly self breast exams. It is advised to get annual flu shot in the fall and she could obtain at [facility] or [facility] take care clinic. If you haven't received the Tdap vaccine in the last 10 years you should obtain one as well. Have mammogram yearly, bone density every 2-3 years and colonoscop y every 5-10 years depending on findings and history. Engage in daily exercise of low impact aerobic exercise 45-60 minutes 4-5 times weekly. Avoid tobacco and illicit drugs as well as using moderation with alcohol intake less than 1-2 8 oz beverages daily. This lifestyle behavior pattern will lead to less health conditions and longer life span. If BMI greater than 25 weight watchers or dietary consult advised. Questions have been answered. Patient appears to understand instructio ns, but if you have any further questions call or respond to this email Pap/hpv sent USPSTF recommends against screening for cervical cancer in women older than 65yo, those who've had a hysterecto my for non-cancer indication s, & who have had adequate prior screening & are not otherwise at high risk for cervical cancer. STD Screen declinedGe netic Screen discussedC olon ScreenUTD PCPDexa Screen UTD PCPRoutine Labs UTD PCP Screening mammography 24 197624 Z12.31 Health Concerns Section Related Observation LastModified by Organization Detai ls LastModified Time None Recorded Concern Status LastModified by Organization Details LastModified Time None Recorded Advance Directives Directive None Recorded Payers Encounter Date Sequence Insurance Name Policy Number Policy Roca Covered Member ID Roca Member ID Guarantor Name 08/20/2020 1 [employer] [id number] Bea Reynolds [id number] RHYS Valero 07/11/2023 1 [employer] [id number] Bea Reynolds [id number] OI Jenna Valero Notes Date Note Type Note Provider Name and Address Organization Details Recorded Time 08/20/2020 text/html Patient is a 60y o G0 who presents for an annual exam. Menopause 53, no bleeding. nonsmoker. recently started on lisinopril for HTN, also had basal cell removed from under eye this year. last pap-2016 all normal mammo- 18mos ago colonoscopy-2 years, 10 year plan dexa-none menopause-53 sexually active-yes, female partner for 20 years seatbelts-yes exercise-some depression-denies , though lost her brother and nephew both this year domestic violence-denies concerns-none Jesusita Rubin MD [address], [place], [address], [place] [facility] 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 Post-MenopausalRe ported bypatient.Silva priscilla Symptoms:no menopausal symptoms; normal vaginal lubrication Vaginal Bleeding:history of menopause having occurred; no history of post menopausal bleeding Urinary Symptoms:no hematuria; no incontinence; no nocturia; no urinary frequency Vulva:no genital lesion; no vulvar atrophy Vagina:normal vaginal discharge; no vaginal atrophy Breast:no breast lump; no nipple discharge; no breast pain Sexual Complaints:no sexual complaints Psychological Symptoms:no depression; no anxiety Preventive Measures:encourag e regular mammograms starting age 40; encourage self breast examination; encourage regular exercise; encourage no tobacco use; needs to schedule mammogram; history of recent colonoscopy Almita Zavala, [facility] [address], [place], [address], [facility] 07/11/2023 15:23:53 OBGyn Episode Ob Episode Information Episode Created Date Number of Fetuses Patient Bloodtype Patient rh Status Prepregnancy Weight lbs Domestic Partner Domestic Partner Phone Father Name Forest Aide Status 08/20/20 20 1 DELETED Grant Calculation Initial Garnt Date Initial Exam Date Initial Exam Provider Initial Ultrasound Date Last Menstrual Period Date Ultra Sound Weeks Gestation 0 Eighteen To Twenty Week Grant Update Ultra Sound Date Fundal Height At Umbil Quickening Date Ultra Sound Latest Weeks Gestation Final Grant Confirmed By Final Grant Confirmed Date Final Grant Date Ultra Sound Latest Days Gestation 0 0 Menstrual History Last Menstrual Date Menses Monthly On Bcp Conception Prior Menses Frequency Hcg Plus Date Menarche Onset Age Delivery Information Delivery Date Delivery Type Labor Anesthesia Weeks Gestation Incision Type Labor Labor Length Hrs Delivered By Post Complications Tubal Sterilization Discharge Date Comments 1 40 Discharge Information Feeding Method Contraceptive Method Maternal HG B and HCT Levels
--- OUTSIDE RECORDS SUMMARY | 2024-12-09 15:25 | XMS_ITS | Encounter Summary ---
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
--- OUTSIDE RECORDS SUMMARY | 2024-12-09 15:25 | XMS_ITS | Patient Health Summary ---
Author Organization [facility] Address [address] [place] [address] Care Team Providers Care Director Style Name Role Phone Unavailable Primary Care Provider Unavailabl e Note from [facility],non-owned Affiliates and Associated Physician Practices is amultiple site organization consisting of ambulatory clinics and hospital sitesin [place], [place], [place] and [place]. This disclosure is being madepursuant to the Care Everywhere program and may not contain all information available regarding this patient. Last updated 18.[facility] Allergies No known active allergies Immunizations * TDAP (7yrs+)(Given 09/20/2017) Social History Tobacco Use Types Packs/Day Years Used Date Smoking Tobacco: Never Assessed Sex and Gender Information Value Date Recorded Sex Assigned at Not on file Gender Identity Not on file Sexual Orientation Not on file
--- OUTSIDE RECORDS SUMMARY | 2024-12-09 15:25 | XMS_ITS ---
Author Organization Unknown Medications Medication Instructions Effective Dates (start - stop) Status celecoxib 200 MG Oral Capsule 2023-06-28 00:00:00Z - Completed hydrochlorothiazide 12.5 MG Oral Tablet - Completed celecoxib 200 MG Oral Capsule 2023-05-30 00:00:00Z - Completed imiquimod 50 MG/ML Topical Cream 00:00:00Z - Completed rosuvastatin calcium 10 MG O ral Tablet - Completed celecoxib 200 MG Oral Capsule 2023-11-28 00:00:00Z - Completed celecoxib 200 MG Oral Capsule 2023-05-29 00:00:00Z - Completed hydrochlorothiazide 12.5 MG Oral Tablet - Completed celecoxib 200 MG Oral Capsule 2024-02-26 00:00:00Z - Completed rosuvastatin calcium 10 MG O ral Tablet - Completed losartan potassium 100 MG Or al Tablet - Completed rosuvastatin calcium 10 MG O ral Tablet - Completed rosuvastatin calcium 10 MG O ral Tablet - Completed losartan potassium 100 MG Or al Tablet - Completed celecoxib 200 MG Oral Capsule 2023-09-03 00:00:00Z - Completed hydrochlorothiazide 12.5 MG Oral Tablet - Completed celecoxib 200 MG Oral Capsule 2023-08-08 00:00:00Z - Completed hydrochlorothiazide 12.5 MG Oral Tablet - Completed losartan potassium 100 MG Or al Tablet - Completed losartan potassium 100 MG Or al Tablet - Completed celecoxib 200 MG Oral Capsule 2023-11-30 00:00:00Z - Completed celecoxib 200 MG Oral Capsule 2023-04-29 00:00:00Z - Completed celecoxib 200 MG Oral Capsule 2023-06-25 00:00:00Z - Completed rosuvastatin calcium 10 MG O ral Tablet - Completed hydrochlorothiazide 12.5 MG Oral Tablet - Completed rosuvastatin calcium 10 MG O ral Tablet - Completed celecoxib 200 MG Oral Capsule 2023-05-01 00:00:00Z - Completed Patient Care team information Name Category Status Period Participants - - Proposed period not known -
--- OUTSIDE RECORDS SUMMARY | 2024-12-09 15:25 | XMS_ITS | Encounter Summary ---
Author Organization [facility] Address [facility] [place] [address] Care Team Providers Care Is Analyst Name Role Phone Katie Hayden Primary Care Provider [phone] Encounter Details Date Type Department Care Team (Late st Contact Info) Description 09/20/2021 [place] Message Enc [facility] Family [facility] Internal Medicine [facility] [address] [place] [id number] Katie Hayden APNP [address], [place] [id number] [place] Social History Tobacco Use Types Packs/Day [...] COVID-19? 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
== END 2024-12-09 13:46 | disposition home or self-care (01) ==
LOC: ANHNEURO 13:45
PROVIDERS: PCP Registered Nurse; Visit Provider Plastic Surgery
DX: G56.03 Carpal tunnel syndrome, bilateral upper limbs (principal)
CPT/HCPCS: 95886; 95911

== ENCOUNTER 2024-12-26 14:42 | Outpatient (CLI) | payer OTHER, SELFPAY ==
--- NOTE | ~2024-12-26 | MM_ITS ---
EXAMINATION: MM screening [facility] HISTORY: Screening TECHNIQUE: Craniocaudal and mediolateral oblique 3-D tomosynthesis images were obtained and synthetic 2-D images were generated. CAD analysis was submitted and interpreted. COMPARISON: 09/13/2023 and dating back to 03/10/2019 BREAST PARENCHYMAL COMPOSITION: The breasts are heterogeneously dense, which may obscure small masses . FINDINGS: Punctate calcifications are detected bilaterally, stable and benign in appearance. Stable parenchymal pattern without suspicious microcalcifications, architectural distortion, discrete masses or significant asymmetry. IMPRESSION: 1. No mammographic evidence of malignancy. 2. Recommend routine screening mammography in one year. BI-RADS Category 2: Benign finding(s). Reviewed, dictated and finalized at location A.
== END 2024-12-26 14:43 | disposition home or self-care (01) ==
LOC: MICIMG 14:43
PROVIDERS: PCP Registered Nurse; Visit Provider Registered Nurse
DX: Z12.31 Encounter for screening mammogram for malignant neoplasm of breast (principal)
CPT/HCPCS: 77063; 77067